=== PATIENT | male | born 1950 | race Caucasian/White ===

== ENCOUNTER 2022-09-12 21:04 | Inpatient (IN) | payer OTHER ==
[~2022-09-12] VITALS: Ht 165.1 cm; Wt 59.0 kg
--- NOTE | 2022-09-12 21:07 | NUR ---
Placed in room 8 . Placed on hall monitor, blood pressure machine and pulse oximeter. To gown for exam. Side rails up. Report given to BECK LEACH.
--- NOTE | 2022-09-12 21:08 | NUR ---
RT at bedside.
--- NOTE | 2022-09-12 21:09 | NUR ---
PATIENT BROUGHT IN ACCOMPANIED BY ALS FROM [facility] FOR FEVER AND SHORTNESS OF BREATH. PER EMS, PATIENT DESATURATED BETWEEN 80-85% ON NORMAL VENT SETTINGS. PATIENT COMES WITH POLST STATING FULL CODE. PATIENT IS NONVERBAL ARRIVES ON TRACH . VENT SETTING MODE AC 14 TV 450 PEEP 5 FIO2 4LPM TRACHEOSTOMY SHILEY SIZE 8 ABDOMEN DISTENDED. UPPER AND LOWER EXTREMITIES CONTRACTED. PATIENT HAS PRESSURE ULCER TO SACRUM ,ELLINGTON CATHETER IN PLACE. WAS REPLACED TODAY AT [facility]F. 25 MLS OF CLOUDY URINE NOTED. HX OF RESPIRATORY FAILURE, DM2, ILEUS, HEART FAILURE. GTUBE, TACH, SCHIZOPHRENIA, SEIZURES, GERD, ANOXIC BRAIN DAMAGE, OVERACTIVE BLADDER, PACEMAKER.
[2022-09-12 21:10] VITALS: BP_SYST 122
--- NOTE | 2022-09-12 21:10 | NUR ---
DIONI Ambriz at bedside.
--- NOTE | 2022-09-12 21:14 | NUR ---
BLOOD AND CULTURES COLLECTED BY PHLEBOTOMY PROGRAM COORDINATOR
[2022-09-12] MEDS ORDERED: VANCOMYCIN HCL 1,000 MG in D5W 250 ML IV ONE (21:15)
[2022-09-12] MEDS ORDERED: PIPERACILLIN/TAZO 3.375 GM in D5W 50 ML IV ONE (21:15)
--- NOTE | 2022-09-12 21:30 | NUR ---
MRSA, COVID, INFLUENZA COLLECTED AND SENT TO LAB
--- NOTE | 2022-09-12 21:35 | NUR ---
# 20 gauge angiocath placed to RFA. Use of asceptic technique. Opsite placed over site. Blood return noted. Flushed with 10 cc of normal saline. No evidence of infiltration noted. Patient tolerated well.
--- NOTE | 2022-09-12 21:38 | NUR ---
CROSSING GUARD AT BEDSIDE FOR CHEST X RAY
[2022-09-12] MEDS ORDERED: PIPERACILLIN/TAZOBACTAM 3.375 GM/VIAL (ZOSYN) IV ONE (21:49)
[2022-09-12] MEDS ORDERED: VANCOMYCIN HCL 1000 MG/VIAL IV ONE (21:49)
[2022-09-12 21:51] LABS: MONOCYTES # (AUTO) 0.3 K/uL (0.0-1.0)
[2022-09-12 22:02] LABS: ALANINE AMINOTRANSFERASE 23 U/L (12-78); ALBUMIN 2.1 g/dL (3.4-4.8); ANION GAP 19 (5-15); ASPARTATE AMINOTRANSFERASE 10 U/L (10-37); CALCIUM 10.6 mg/dL (8.4-11.0); CREATININE 1.78 mg/dL (0.55-1.30); TOTAL BILIRUBIN 0.8 mg/dL (0.0-1.0); UREA NITROGEN, BLOOD 89 mg/dL (8-21)
[2022-09-12] MEDS ORDERED: BACL10TA GT (22:07)
[2022-09-12] MEDS ORDERED: CRAN450T9 GT (22:07)
[2022-09-12] MEDS ORDERED: LANS30CA53 GT (22:07)
[2022-09-12] MEDS ORDERED: DOCU-144 GT (22:07)
[2022-09-12] MEDS ORDERED: VITD2000 GT (22:07)
[2022-09-12] MEDS ORDERED: FER300L GT (22:07)
[2022-09-12] MEDS ORDERED: METO-290 GT (22:07)
[2022-09-12] MEDS ORDERED: AMIN30LI2 GT (22:07)
[2022-09-12] MEDS ORDERED: PRED10TA GT (22:07)
[2022-09-12] MEDS ORDERED: POTA-197 GT (22:07)
[2022-09-12] MEDS ORDERED: FURO-150 GT (22:07)
[2022-09-12] MEDS ORDERED: LACT10SO6 GT (22:07)
[2022-09-12] MEDS ORDERED: LEVE1000 GT (22:07)
[2022-09-12] MEDS ORDERED: ACID1CAP2 GT (22:07)
[2022-09-12] MEDS ORDERED: IPRA4AER INH ×2 (22:07)
[2022-09-12] MEDS ORDERED: CALC500O PO (22:07)
[2022-09-12] MEDS ORDERED: HYDR-3927 GT (22:07)
[2022-09-12] MEDS ORDERED: ASCO500T20 GT (22:07)
[2022-09-12] MEDS ORDERED: CALC500T63 GT (22:07)
[2022-09-12] MEDS ORDERED: MIDO5TAB4 GT (22:07)
[2022-09-12] MEDS ORDERED: TYLL650 GT (22:07)
[2022-09-12] MEDS ORDERED: MULT-1117 GT (22:07)
--- NOTE | 2022-09-12 22:14 | NUR ---
ER Dr. QUARLES at bedside examining patient.
--- NOTE | 2022-09-12 22:18 | NUR ---
Received call from Mitzy in lab with critical lab values. Sodium 183, Chloride 132, Glucose 1058, Latic acid 11.7, and High Sensitive Troponin 334.
[2022-09-12 22:19] LABS: CHLORIDE 132 mmol/L (98-107); GLUCOSE 1058 mg/dL (70-99)
[2022-09-12 22:28] LABS: BASOPHILS % (AUTO) 0.3 % (0.0-2.0); HEMATOCRIT 47.9 % (36-54); HEMOGLOBIN 12.8 g/dL (14.0-18.0); MEAN CORPUSCULAR HEMOGLOBIN 27 pg (27-31); MEAN CORPUSCULAR HGB CONC 27 % (32-36); MEAN CORPUSCULAR VOLUME 102 fL (79.0-98.0); MONOCYTES % (AUTO) 2.3 % (1.7-9.3); NEUTROPHILS # (AUTO) 12.6 K/uL (1.8-7.7); NEUTROPHILS % (AUTO) 90.4 % (40.0-70.0); PLATELET COUNT (AUTO) 232 K/uL (130-430); RED CELL DISTRIBUTION WIDTH 20.1 % (9.0-15.0); WHITE BLOOD COUNT (AUTO) 13.9 K/uL (4.8-10.8)
[2022-09-12] MEDS ORDERED: INSULIN REGULAR, HUMAN 100 UNITS in NS 99 ML IV ONE ×2 (22:30)
[2022-09-12] MEDS ORDERED: NACL 0.9% 2,000 ML IV ONE (22:30)
--- NOTE | 2022-09-12 22:33 | NUR ---
Patient transported to radiology via GURNEY , accompanied by IZAIAH RENDON, RT, AND THIS RN
--- NOTE | 2022-09-12 23:17 | NUR ---
DR. QUARLES INFORMED THAT ELLINGTON CATHER WAS CHANGED TODAY. PER MD, NO NEED TO CHANGE ELLINGTON CATHETER AT THIS TIME.
[2022-09-13] VITALS (9 sets, daily range): BP systolic 102–153
--- NOTE | 2022-09-13 | NUR ---
ACCUCHECK SHOWING HIGH. WILL CONTINUE INSULIN DRIP AT 6U/HR.
[2022-09-13 00:41] LABS: BILIRUBIN,URINE NEGATIVE (NEGATIVE); BLOOD, URINE 2+ (NEGATIVE); CLARITY/URINE CLOUDY (CLEAR); COLOR,URINE YELLOW (YELLOW); GLUCOSE,URINE 3+ (NEGATIVE); KETONES,URINE NEGATIVE (NEGATIVE); LEUKOCYTE ESTERASE ,URINE 1+ (NEGATIVE); NITRITE, URINE NEGATIVE (NEGATIVE); PROTEIN URINE 3+ (NEGATIVE); UROBILINOGEN,URINE 0.2 (0.2-1.0)
[2022-09-13 01:03] LABS: BACTERIA,URINE MANY /HPF (None Seen); WBC,URINE >100 /HPF (0-3)
--- NOTE | 2022-09-13 01:10 | NUR ---
accucheck 578. will continue insulin at 6 u/hr.
--- NOTE | 2022-09-13 01:29 | NUR ---
IVF infusing with no s/s of infiltration at this time. Will cont to monitor
[2022-09-13] MEDS ORDERED: NACL 0.9% 1,000 ML IV ONE (01:30)
[2022-09-13] MEDS ORDERED: NOREPINEPHRINE BITARTRATE 4 MG in NS 246 ML IV ONE (01:30)
--- NOTE | 2022-09-13 01:40 | NUR ---
Admit bed requested Patient will be admitted to care of . Admitted to ICU unit. Diagnosis RESPIRATORY FAILURE Inpatient (Yes or No) Y Observation (Yes or No) N Orientation concerns or request close to nursing station (Yes or No) Y Covid Status NEG On vent or bipap Y Isolation requirements NO ISOLATION Needs a sitter From Home (Yes or if No enter name of facility) Requires Dialysis (Yes or No) Med Rec Completed (Yes of No) YES
--- NOTE | 2022-09-13 02:05 | NUR ---
ICU ADMIT Patient is trach to vent, tolerating current settings. AFIB on monitor. Skin warm and dry. IVF infusing. Safety precautions in place, call light within reach. Will continue to monitor.
[2022-09-13] MEDS ORDERED: DEXTROSE 50% JECT 50 ML DISP.SYRIN IVP PRN (03:00)
[2022-09-13] MEDS ORDERED: INSULIN REGULAR, HUMAN 100 UNITS in NS 99 ML IV PRN ×2 (03:00)
[2022-09-13] MEDS ORDERED: D5W 1,000 ML IV SCH (03:00)
[2022-09-13] MEDS ORDERED: PIPERACILLIN/TAZO 3.375/DEX-IS 50 ML IV SCH ×2 (03:30→06:00)
[2022-09-13] MEDS ORDERED: PIPERACILLIN/TAZOBACTAM 3.375 GM/VIAL (ZOSYN) IV ONE (03:51)
[2022-09-13 04:56] LABS: ANION GAP 15 (5-15); BASOPHILS % (AUTO) 0.1 % (0.0-2.0); CALCIUM 9.2 mg/dL (8.4-11.0); CREATININE 1.78 mg/dL (0.55-1.30); EOSINOPHILS % (AUTO) 0.1 % (0.0-4.0); HEMATOCRIT 44.3 % (36-54); HEMOGLOBIN 12.2 g/dL (14.0-18.0); LYMPHOCYTES # (AUTO) 0.9 K/uL (1.0-5.5); MEAN CORPUSCULAR HEMOGLOBIN 27 pg (27-31); MEAN CORPUSCULAR HGB CONC 28 % (32-36); MEAN CORPUSCULAR VOLUME 99 fL (79.0-98.0); MONOCYTES # (AUTO) 0.1 K/uL (0.0-1.0); MONOCYTES % (AUTO) 0.8 % (1.7-9.3); NEUTROPHILS # (AUTO) 12.3 K/uL (1.8-7.7); PLATELET COUNT (AUTO) 195 K/uL (130-430); RED BLOOD CELL COUNT(AUTO) 4.48 MIL/uL (4.2-6.2); RED CELL DISTRIBUTION WIDTH 20.3 % (9.0-15.0); UREA NITROGEN, BLOOD 84 mg/dL (8-21); WHITE BLOOD COUNT (AUTO) 13.3 K/uL (4.8-10.8)
--- NOTE | 2022-09-13 04:57 | NUR ---
CONSULTATION PAGED/CALLED Reason for Consultation: Respiratory Failure Person Who was Notified: Juan Consulting Physician: Dr Barry Electrician Control Equipment Specialty: Pulmonary Ordering Physician: Dr Hendricks
[2022-09-13 05:00] LABS: CHLORIDE 141 mmol/L (98-107); GLUCOSE 589 mg/dL (70-99)
--- NOTE | 2022-09-13 05:00 | NUR ---
CONSULTATION PAGED/CALLED Reason for Consultation: Sepsis Person Who was Notified: Everett Consulting Physician: Dr Randle Canoe Builder Specialty: ID Ordering Physician: Dr Hendricks
--- NOTE | 2022-09-13 06:05 | NUR ---
BLOOD SUGAR Spoke to DR. GUO SAYED, informed MD about latest labs and current blood sugar. Orders to keep a goal of blood glucose between 200-250, keep Insulin Drip at 6units/hr unless blood sugar trends upward. MD to see patient in the AM.
--- NOTE | 2022-09-13 07:20 | NUR ---
ENDORSEMENT PATIENT CARE ENDORSED TO MICHELLE LEACH.
--- NOTE | 2022-09-13 08:18 | NUR ---
@ bedside when heart monitor alarmed, asystole noted on monitor, pulse checked and compressions were started immediately, 08 to 828 when ROSC was achieved, see code documentation for meds administered. 0849- assisting recyclable materials collector with getting stat BMP when PEA noted on monitor, pulse checked, no pulse noted , compressions started , second code called and ran from 9714-3539, see code documentation for meds administered. MD @ bedside called TOD @ 0856. MD and charge nurse tried multiple times during code to call family, unaware if family was finally notified.
[2022-09-13 09:06] LABS: ANION GAP 26 (5-15); CALCIUM 9.4 mg/dL (8.4-11.0); CREATININE 1.62 mg/dL (0.55-1.30); UREA NITROGEN, BLOOD 85 mg/dL (8-21)
[2022-09-13 09:09] LABS: CHLORIDE 139 mmol/L (98-107); GLUCOSE 447 mg/dL (70-99)
[2022-09-13] MEDS ORDERED: DEXTROSE 50% JECT 50 ML DISP.SYRIN IVP ONE (09:19)
[2022-09-13] MEDS ORDERED: EPINEPHrine JECT 0.1 MG/ML SYR IVP ONE (09:19)
--- NOTE | 2022-09-13 09:51 | NUR ---
MAKAYLA CALLED UP 1 [phone] MAKAYLA, SPOKE TO COORDINATOR DIANE. REFERRAL NUMBER [id number]. SHE STATED THAT A COORDINATOR WILL MAKE A FOLLOW UP CALL.
[2022-09-13] MEDS ORDERED: ASCORBIC ACID 500 MG TABLET GT SCH (10:00)
[2022-09-13] MEDS ORDERED: predniSONE 10 MG TABLET GT SCH (10:00)
[2022-09-13] MEDS ORDERED: LORazepam 2 MG/ML VIAL IVP PRN (10:00)
[2022-09-13] MEDS ORDERED: CALCIUM CARBONATE 500 MG/ TAB.CHEW GT SCH (10:00)
[2022-09-13] MEDS ORDERED: CHOLECALCIFEROL (VITAMIN D3) 2,000 UNIT TABLET GT SCH (10:00)
[2022-09-13] MEDS ORDERED: HYDROcodone/ACETAMIN 10-325 MG TAB GT PRN (10:00)
[2022-09-13] MEDS ORDERED: MULTIVITAMINS TAB 1 TABLET GT SCH (10:00)
[2022-09-13] MEDS ORDERED: ONDANSETRON HCL 4 MG/2 ML VIAL IVP PRN (10:00)
[2022-09-13] MEDS ORDERED: NON-FORMULARY MEDICATION (Cranberry Fruit (Cranberry) 425 MG) GT SCH (10:00)
[2022-09-13] MEDS ORDERED: POTASSIUM CHLORIDE 20 MEQ TAB.PRT.SR GT SCH (10:00)
[2022-09-13] MEDS ORDERED: FUROSEMIDE 20 MG TABLET GT SCH (10:00)
[2022-09-13] MEDS ORDERED: NALOXONE HCL 0.4 MG/ML AMP (NARCAN) IVP PRN (10:00)
[2022-09-13] MEDS ORDERED: LANSOPRAZOLE 30 MG CAPSULE.DR GT SCH (10:00)
[2022-09-13] MEDS ORDERED: ACETAMINOPHEN 650 MG/20.3 ML UDC GT SCH (10:00)
[2022-09-13] MEDS ORDERED: NON-FORMULARY MEDICATION (Lactulose 10 GM) GT SCH (10:00)
[2022-09-13] MEDS ORDERED: ACETAMINOPHEN 325 MG TABLET GT PRN (10:00)
--- NOTE | 2022-09-13 10:00 | NUR ---
CHEESE SUPERVISOR[employer]S OFFICE CALLED THE OFFICE TO REPORT A , SPOKE TO JANET, THE IS NOT A CHEESE SUPERVISOR'S CASE.
--- NOTE | 2022-09-13 10:48 | NUR ---
CONSULT CALLED UP OFFICE OF DR KERR TO CANCEL THE CONSULT, PT .
[2022-09-13] MEDS ORDERED: ALBUTEROL SULFATE 0.083% 2.5 MG/3 ML VIAL.NEB INH SCH (11:00)
[2022-09-13] MEDS ORDERED: IPRATROPIUM BROM 0.5 MG/2.5 ML VIAL.NEB (ATROVENT) INH SCH (11:00)
--- NOTE | 2022-09-13 11:29 | NUR ---
PHONE CALL TO FAMILY ATTEMPTED TO GET THROUGH JALEEL MCDONNELL'S SISTER (FILE) VOICE MAIL MESSAGE LEFT. CALLED UP ALESHIA FERNÁNDEZ TO FIND MORE FAMILY INFORMATION, TRIED TO CONNECT TO [facility] WILSON, UNABLE TO LEAVE A MESSAGE THROUGH.
--- NOTE | 2022-09-13 12:10 | NUR ---
post mortem care given to pt, no belongings noted at bedside.Scott catheter removed, no urine noted in bag. PIVs X2 removed and pressure dressings applied, body tagged and placed in body bag, notified charge nurse.
--- NOTE | 2022-09-13 12:25 | NUR ---
[facility] CALL RECEIVED FROM TANVI Flores, COORDINATOR, MEDICAL HISTORY WAS OBTAINED. THE BODY CAN BE RELEASED TO THE MORTUARY IF THERE IS ANY. REFERRAL NUMBER [id number]
[2022-09-13] MEDS ORDERED: ETOMIDATE 20 MG/ 10 ML VIAL (AMIDATE) IVP ONE (12:51)
[2022-09-13] MEDS ORDERED: ROCURONIUM BROMIDE 10 MG/ML (ZEMURON) IV ONE (12:51)
[2022-09-13] MEDS ORDERED: METOCLOPRAMIDE HCL 10 MG TABLET GT SCH (14:00)
[2022-09-13] MEDS ORDERED: MIDODRINE HCL 5 MG TABLET (PROAMATINE) GT SCH (15:00)
[2022-09-13] MEDS ORDERED: [UNRECOGNIZED DRUG - MIXTURE] GT SCH (15:00)
[2022-09-13] MEDS ORDERED: NON-FORMULARY MEDICATION (Amino Acids/Protein Hydrolys (Pro-Stat Liquid) 30 ML) GT SCH (15:00)
[2022-09-13] MEDS ORDERED: BACLOFEN 10 MG TABLET GT SCH (15:00)
[2022-09-13] MEDS ORDERED: FERROUS SULFATE 300 MG/5 ML UDC GT SCH (21:00)
[2022-09-13] MEDS ORDERED: levETIRAcetam 500 MG TABLET GT SCH (21:00)
== END 2022-09-13 08:56 | DRG 871 ==
LOC: SED 21:04 → SIC 09-13 01:31 → SED 09-13 01:42 → SIC 09-13 01:55
PROVIDERS: ADMIT Preventive Medicine Preventive Medicine/Occupational Environmental Medicine; ATTEND Preventive Medicine Preventive Medicine/Occupational Environmental Medicine
PROC: 5A1935Z Respiratory Ventilation, Less than 24 Consecutive Hours (ICD-10-PCS; principal; 2022-09-13)
DX: A41.9 Sepsis, unspecified organism (principal); E11.00 Type 2 diabetes mellitus with hyperosmolarity without nonketotic hyperglycemic-hyperosmolar coma (NKHHC); J18.9 Pneumonia, unspecified organism; J96.21 Acute and chronic respiratory failure with hypoxia; R65.21 Severe sepsis with septic shock; K55.9 Vascular disorder of intestine, unspecified; E87.0 Hyperosmolality and hypernatremia; G93.1 Anoxic brain damage, not elsewhere classified; N17.9 Acute kidney failure, unspecified; N39.0 Urinary tract infection, site not specified; Z99.11 Dependence on respirator [ventilator] status; Z20.822 Contact with and (suspected) exposure to COVID-19; E78.5 Hyperlipidemia, unspecified; E86.0 Dehydration; G40.909 Epilepsy, unspecified, not intractable, without status epilepticus; I25.10 Atherosclerotic heart disease of native coronary artery without angina pectoris; I46.9 Cardiac arrest, cause unspecified; I50.9 Heart failure, unspecified; K21.9 Gastro-esophageal reflux disease without esophagitis; R13.10 Dysphagia, unspecified; E55.9 Vitamin D deficiency, unspecified; Z79.4 Long term (current) use of insulin; Z79.899 Other long term (current) drug therapy; Z93.1 Gastrostomy status; Z93.0 Tracheostomy status
CPT/HCPCS: 36415; 36600; 71045; 76376; 80048; 80053; 81000; 82009; 82803-TC; 82962; 83605; 84484; 85025; 87040; 87070-TC; 87081; 87086; 87205-TC; 92950; 93005; 94002; 94003; 94640; 96365; 96368; 99291; J0171; J1815; J2543; J3370; J3490